=== PATIENT | male | born 1965 | race Caucasian/White ===

== ENCOUNTER 2019-04-02 11:08 | Emergency (ER) | payer OTHER ==
[~2019-04-02] VITALS: Ht 182.9 cm; Wt 161.5 kg
[2019-04-02] MEDS ORDERED: CARVEDILOL ER40 MG PO ×2 (11:35→11:38)
[2019-04-02] MEDS ORDERED: CRESTOR20 MG PO (11:37)
[2019-04-02] MEDS ORDERED: XARELTO20 M1 PO (11:37)
[2019-04-02] MEDS ORDERED: LASIX20 MG PO (11:37)
[2019-04-02] MEDS ORDERED: HYDRALAZINE HCL50 MG PO (11:38)
[2019-04-02] MEDS ORDERED: FLONASE16 GM TOP (15:01)
[2019-04-02] MEDS ORDERED: PROMETH-CODEIN 65 ML PO (15:01)
[2019-04-02] MEDS ORDERED: CLARITIN-D 241 EACH PO (15:01)
== END 2019-04-02 15:36 | disposition home or self-care (01) ==
LOC: ER 11:08
DX: B34.9 Viral infection, unspecified (principal)